=== PATIENT | male | born 1985 | race Caucasian/White ===

== ENCOUNTER 2017-12-16 11:22 | Emergency (ER) | payer SELFPAY ==
[2017-12-16 11:27] VITALS: BP 135/84; PULSE 62; TEMP 98.3; BMI 29.2
--- NOTE | 2017-12-16 12:04 | PDOC ---
History of Present Illness - General Chief Complaint: Rash Stated Complaint: RASH Time Seen by Provider: 12/16/17 11:46 History Source: Patient Exam Limitations: Clinical Condition - History of Present Illness Initial Comments: 12/16/17 12:11 Patient with no significant past medical history present with complain of diffuse body rash all over the body since yesterday. Patient was seen in this ED 2 days ago and was given Toradol injection for pain and not sure that caused the rash. Denies any other symptoms. Patient reported the rash is not itchy. Timing/Duration: 24 hours Past History - Past Medical History Allergies/Adverse Reactions: Allergies Allergy/AdvReac Type Severity Reaction Status Date / Time No Known Allergies Allergy Verified 12/16/17 11:23 Home Medications: Ambulatory Orders Hydrocortisone 2.5% Lotion [Hytone 2.5% Lotion -] 1 applic TP BID #1 bottle Hydroxyzine HCl 25 mg PO TID PRN #20 tablet 12/16/17 Prednisone [Deltasone] 20 mg PO BID 5 Days #10 tablet 12/16/17 COPD: No DVT: No - Suicide/Smoking/Psychosocial Hx Smoking History: Never smoked Information on smoking cessation initiated: No Hx Alcohol Use: No Drug/Substance Use Hx: No Substance Use Type: None Review of Systems - Review of Systems Able to Perform ROS?: Yes Is the patient limited Serbian proficient: No Constitutional: No: Symptoms Reported, See HPI, Chills, Diaphoresis, Fever, Loss of Appetite, Malaise, Night Sweats, Weakness, Weight Stable, Unintentional Wgt. Loss, Unexplained wgt Loss, Other HEENTM: No: Eye Pain, Blurred Vision, Tearing, Recent change in vision, Double Vision, Cataracts, Ear Pain, Ocular Prothesis, Ear Discharge, Nose Pain, Nose Congestion, Tinnitus, Nose Bleeding, Hearing Loss, Throat Pain, Throat Swelling , Mouth Pain, Dental Problems, Difficulty Swallowing, Mouth Swelling, Other Respiratory: No: Cough, Orthopnea, Shortness of Breath, SOB with Exertion, SOB at Rest, Stridor, Wheezing, Productive cough, Hemoptysis, Other Cardiac (ROS): No: Chest Pain, Edema, Irregular Heart Rate, Lightheadedness, Palpitations, Syncope, Chest Tightness, Other ABD/GI: No: Abdominal Distended, Abd. Pain w/ defecation, Blood Streaked Bowels , Constipated, Diarrhea, Difficulty Swallowing, Nausea, Poor Appetite, Poor Fluid Intake, Rectal Bleeding, Vomiting, Indigestion, Abdominal cramping, Tarry Stools, Other Musculoskeletal: No: Back Pain, Gout, Joint Pain, Joint Swelling, Muscle Pain, Muscle Weakness, Neck Pain, Joint Stiffness, Other Integumentary: Yes: See HPI, Rash (all over the body). No: Erythema, Pruritus All Other Systems: Reviewed and Negative *Physical Exam - Vital Signs Last Vital Signs Temp Pulse Resp BP Pulse Ox 98.3 F 62 18 135/84 100 12/16/17 11:24 12/16/17 11:24 12/16/17 11:24 12/16/17 11:24 12/16/17 11:24 - Physical Exam Comments: 12/16/17 12:14 GENERAL: Well developed, well nourished. Awake and alert. No acute distress. HEENT: Normocephalic, atraumatic. PERRLA, EOMI. No conjunctival pallor. Sclera are non- icteric. Moist mucous membranes. Oropharynx is clear. NECK: Supple. Full ROM. No JVD. Carotid pulses 2+ and symmetric, without bruits. No thyromegaly. No lymphadenopathy. CARDIOVASCULAR: Regular rate and rhythm. No murmurs, rubs, or gallops. Distal pulses are 2+ and symmetric. PULMONARY: No evidence of respiratory distress. Lungs clear to auscultation bilaterally. No wheezing, rales or rhonchi. ABDOMINAL: Soft. Non-tender. Non-distended. No rebound or guarding. No organomegaly. Normoactive bowel sounds. MUSCULOSKELETAL Normal range of motion at all joints. No bony deformities or tenderness. No CVA tenderness. EXTREMITIES: No cyanosis. No clubbing. No edema. No calf tenderness. SKIN: Diffuse vesicular rash all over the body without discolorations. Warm and dry. NEUROLOGICAL: Alert, awake, appropriate. Cranial nerves 2-12 intact. No deficits to light touch and temperature in face, upper extremities and lower extremities. No motor deficits in the in face, upper extremities and lower extremities. Normoreflexic in the upper and lower extremities. Normal speech. Toes are down- going bilaterally. Gait is normal without ataxia. PSYCHIATRIC: Cooperative. Good eye contact. Appropriate mood and affect. General Appearance: Yes: Nourished, Appropriately Dressed. No: Apparent Distress Medical Decision Making - Medical Decision Making 12/16/17 12:15 Patient with no significant past medical history present with complain of diffuse rashes per day without itching and with no other complaints. Symptoms likely ALLERGIC dermatitis versus heat rash. Patient stable for home discharge on outpatient treatment for dermatitis with dermatology follow-up *DC/Admit/Observation/Transfer Diagnosis at time of Disposition: Dermatitis - Discharge Dispostion Disposition: HOME Condition at time of disposition: Stable Decision to Admit order: No - Prescriptions Prescriptions: Hydrocortisone 2.5% Lotion [Hytone 2.5% Lotion -] 1 applic TP BID #1 bottle Hydroxyzine HCl 25 mg PO TID PRN #20 tablet PRN Reason: rash Prednisone [Deltasone] 20 mg PO BID 5 Days #10 tablet - Referrals Referrals: Philip Calhoun MD [Non Staff, Medical] - - Patient Instructions Printed Discharge Instructions: DI for Rash Additional Instructions: Take medications as prescribed. Follow-up with preferred dermatology if no improvement in 4 days - Post Discharge Activity
== END 2017-12-16 12:07 | disposition home or self-care (01) ==
LOC: JERFT 11:22
DX: L30.8 Other specified dermatitis (principal)
CPT/HCPCS: 99281-25

== ENCOUNTER 2018-03-03 18:34 | Emergency (ER) | payer OTHER ==
--- NOTE | 2018-03-03 18:47 | PDOC ---
Rapid Medical Evaluation Chief Complaint: Pain, Acute Time Seen by Provider: 03/03/18 18:40 Medical Evaluation: Allergies Allergy/AdvReac Type Severity Reaction Status Date / Time No Known Allergies Allergy Verified 12/16/17 11:23 03/03/18 18:41I have performed a brief in-person evaluation of this patient. The patient presents with a chief complaint of: states missed step and c/o knee pain Pertinent physical exam findings: mild swelling to patella I have ordered the following: xray left knee The patient will proceed to the ED for further evaluation. 03/03/18 18:47 03/03/18 18:48 Discharge Disposition - Diagnosis Left knee pain - Referrals - Patient Instructions - Post Discharge Activity
[2018-03-03 18:48] VITALS: BP 141/84; PULSE 75; TEMP 98.6; BMI 31.1
[2018-03-03] MEDS ORDERED: IBUPROFEN 400 MG TABLET (FP) PO ONE ×2 (20:23→20:25)
--- NOTE | 2018-03-03 20:29 | PDOC ---
History of Present Illness - General Chief Complaint: Pain, Acute Stated Complaint: LT LEG PAIN Time Seen by Provider: 03/03/18 18:40 History Source: Patient Exam Limitations: Clinical Condition - History of Present Illness Initial Comments: 03/03/18 20:24 Patient with no significant past medical history present with complaint of left knee pain status post twisting the knee while walking 3 days ago. Patient reported increased pain to left knee with ambulation. Patient denies fall. Patient denies any other symptoms Timing/Duration: other (3 days) Past History - Past Medical History Allergies/Adverse Reactions: Allergies Allergy/AdvReac Type Severity Reaction Status Date / Time No Known Allergies Allergy Verified 03/03/18 18:45 Home Medications: Ambulatory Orders Ibuprofen 800 mg PO Q8H PRN #20 tablet 03/03/18 Leg Brace [Knee Brace] 1 each MC DAILY #1 each 03/03/18 COPD: No DVT: No - Suicide/Smoking/Psychosocial Hx Smoking History: Never smoked Information on smoking cessation initiated: No Hx Alcohol Use: No Drug/Substance Use Hx: No Substance Use Type: None Review of Systems - Review of Systems Able to Perform ROS?: Yes Is the patient limited Malay proficient: No Constitutional: No: Weakness HEENTM: No: Symptoms Reported Respiratory: No: Symptoms reported Cardiac (ROS): No: Symptoms Reported ABD/GI: No: Symptoms Reported Musculoskeletal: Yes: See HPI, Joint Pain (left knee), Muscle Pain (left knee). No: Muscle Weakness, Joint Stiffness All Other Systems: Reviewed and Negative *Physical Exam - Vital Signs Last Vital Signs Temp Pulse Resp BP Pulse Ox 98.6 F 75 19 141/84 99 03/03/18 18:42 03/03/18 18:42 03/03/18 18:42 03/03/18 18:42 03/03/18 18:42 - Physical Exam Comments: 03/03/18 20:25 GENERAL: Well developed, well nourished. Awake and alert. No acute distress. CARDIOVASCULAR: Regular rate and rhythm. No murmurs, rubs, or gallops. PULMONARY: No evidence of respiratory distress. Lungs clear to auscultation bilaterally. No wheezing, rales or rhonchi. ABDOMINAL: Soft. Non-tender. Non-distended. No rebound or guarding. No organomegaly. Normoactive bowel sounds MUSCULOSKELETAL : mild tenderness over medial and lateral collateral ligament of left knee. mild swelling to patella of lef knee EXTREMITIES: No cyanosis. No clubbing. No edema. No calf tenderness. SKIN: Warm and dry. Normal capillary refill. No rashes. No jaundice. NEUROLOGICAL: Alert, awake, appropriate. No motor deficits in the lower extremities. Gait is normal without ataxia. PSYCHIATRIC: Cooperative. Good eye contact. Appropriate mood and affect. General Appearance: Yes: Nourished, Appropriately Dressed. No: Apparent Distress Medical Decision Making - Medical Decision Making 03/03/18 20:26 Patient with no syndrome past medication present with complaint of left knee pain status post twisting knee while walking 3 days ago. Exam was significant for marked tenderness to medial and lateral collateral ligament. X-ray of left knee shows no acute fracture dislocation. Symptoms likely knee sprain. Ibuprofen 800 mg by mouth given for pain. Patient was discharged home on NSAIDs and knee brace with orthopedics follow-up *DC/Admit/Observation/Transfer Diagnosis at time of Disposition: Left knee pain Qualifiers: Chronicity: acute Qualified Code(s): M25.562 - Pain in left knee Left knee sprain Qualifiers: Encounter type: initial encounter Involved ligament of knee: unspecified ligament Qualified Code(s): S83.92XA - Sprain of unspecified site of left knee, initial encounter - Discharge Dispostion Disposition: HOME Condition at time of disposition: Stable Decision to Admit order: No - Prescriptions Prescriptions: Ibuprofen 800 mg PO Q8H PRN #20 tablet PRN Reason: knee pain Leg Brace [Knee Brace] 1 each MC DAILY #1 each - Referrals Referrals: Obie Mckinney MD [Staff Physician] - - Patient Instructions Printed Discharge Instructions: DI for Knee Sprain Additional Instructions: Your x-ray was negative for fracture or dislocation. Take prescribed medication as needed for pain. use prescribed a knee brace daily until symptoms resolve. - Post Discharge Activity
== END 2018-03-03 20:39 | disposition home or self-care (01) ==
LOC: JERFT 18:34
PROC: 2W3RXYZ Immobilization of Left Lower Leg using Other Device (ICD-10-PCS; principal; 2018-03-03)
DX: S83.8X2A Sprain of other specified parts of left knee, initial encounter (principal); X50.1XXA Overexertion from prolonged static or awkward postures, initial encounter; Y93.01 Activity, walking, marching and hiking; Y92.89 Other specified places as the place of occurrence of the external cause; Y99.8 Other external cause status
CPT/HCPCS: 73562-TC-LT-FY; 99281-25

== ENCOUNTER 2018-04-20 17:53 | Emergency (ER) | payer OTHER ==
[2018-04-20 18:11] VITALS: BP 145/86; PULSE 87; TEMP 97.9; BMI 27.1
--- NOTE | 2018-04-20 18:11 | PDOC ---
Rapid Medical Evaluation Medical Evaluation: Allergies Allergy/AdvReac Type Severity Reaction Status Date / Time No Known Allergies Allergy Verified 03/03/18 18:45 I have performed a brief in-person evaluation of this patient. The patient presents with a chief complaint of: C/O R posterior ESTEVEZ after slip and fall 2 weeks ago (slipped in shower) along with slight pain on turning neck to right, also c/o intermittent blurred vision x 1 week since fall; has been taking Motrin which has been helping him Pertinent physical exam findings: In NAD, no evidence of head trauma, no cspine tenderness, neck supple I have ordered the following: Nothing (patient does not want meds currently) The patient will proceed to the ED for further evaluation. 04/20/18 18:05
--- NOTE | 2018-04-20 19:27 | PDOC ---
History of Present Illness - General Chief Complaint: Head/Neck problem Stated Complaint: Head/Neck problem FROM A FALL Time Seen by Provider: 04/20/18 18:25 History Source: Patient Exam Limitations: Clinical Condition - History of Present Illness Initial Comments: 04/20/18 19:26 Patient with no significant past medication present with complaint of 2 weeks history of intermittent headache and blurred vision status post slip and fall in the bathtub 2 weeks ago hitting the head. Patient reported headache as mild with mild pain to neck area. Patient report taking motrin for pain which helps with symptoms. Patient denies nausea or vomiting. Patient denies restricted neck movement. Patient denies blurry vision now. Patient report mild pain to temporal bone on right side 04/20/18 19:28 04/20/18 19:28 Timing/Duration: other (2 weeks) Past History - Past Medical History Allergies/Adverse Reactions: Allergies Allergy/AdvReac Type Severity Reaction Status Date / Time No Known Allergies Allergy Verified 03/03/18 18:45 Home Medications: Ambulatory Orders Ibuprofen 800 mg PO Q8H PRN #20 tablet 04/20/18 COPD: No DVT: No - Suicide/Smoking/Psychosocial Hx Smoking History: Never smoked Hx Alcohol Use: Yes (Social) Drug/Substance Use Hx: No Substance Use Type: None Review of Systems - Review of Systems Able to Perform ROS?: Yes Is the patient limited Senegalese proficient: No Constitutional: No: Weakness HEENTM: Yes: Blurred Vision (intermittent), Recent change in vision. No: Eye Pain, Tearing, Double Vision Respiratory: No: Symptoms reported Cardiac (ROS): No: Symptoms Reported ABD/GI: No: Nausea, Vomiting Neurological: Yes: Headache (mild). No: Numbness, Paresthesia, Seizure, Dizziness *Physical Exam - Vital Signs Last Vital Signs Temp Pulse Resp BP Pulse Ox 97.9 F 87 20 145/86 99 04/20/18 18:05 04/20/18 18:05 04/20/18 18:05 04/20/18 18:05 04/20/18 18:05 - Physical Exam Comments: 04/20/18 19:29 GENERAL: Well developed, well nourished. Awake and alert. No acute distress. HEENT: Normocephalic, atraumatic. PERRLA, EOMI. No conjunctival pallor. Sclera are non- icteric. Moist mucous membranes. Oropharynx is clear. NECK: Supple. Full ROM. No JVD. Carotid pulses 2+ CARDIOVASCULAR: Regular rate and rhythm. No murmurs, rubs, or gallops. PULMONARY: No evidence of respiratory distress. Lungs clear to auscultation bilaterally. No wheezing, rales or rhonchi. ABDOMINAL: Soft. Non-tender. Non-distended. No rebound or guarding. No organomegaly. Normoactive bowel sounds. MUSCULOSKELETAL : mild tenderness to right temporal area. no bruising or ecchymosis. no swelling to head. Normal range of motion at all joints. No bony deformities or tenderness. SKIN: Warm and dry. Normal capillary refill. no bruising or swelling to head. NEUROLOGICAL: Alert, awake, appropriate. Cranial nerves 2-12 intact. No deficits to light touch in face, upper extremities . No motor deficits in the in face, upper extremities and lower extremities. Normal speech. Toes are down-going bilaterally. Gait is normal without ataxia. PSYCHIATRIC: Cooperative. Good eye contact. Appropriate mood and affect. 04/20/18 19:31 General Appearance: Yes: Nourished, Appropriately Dressed. No: Apparent Distress Moderate Sedation - Procedure Monitoring Vital Signs: Procedure Monitoring Vital Signs Temperature 97.9 F 04/20/18 18:05 Pulse Rate 87 04/20/18 18:05 Respiratory Rate 20 04/20/18 18:05 Blood Pressure 145/86 04/20/18 18:05 O2 Sat by Pulse Oximetry (%) 99 04/20/18 18:05 Medical Decision Making - Medical Decision Making 04/20/18 19:33 Patient with no significant past medication present with complaint of over week history of intermittent headache and blurry vision status post slip and fall 2 weeks ago hitting the head. Clinical exam unremarkable except mild temporal bone tenderness on exam. Normal neuro exam. Head atraumatic with no ecchymosis or swelling to head. Head CT without contrast ordered to rule out any intracranial bleeding. 04/20/18 19:[address] shows no intracranial bleeding no pathology. Symptoms likely head contusion. Patient is stable for discharge with Motrin as needed for pain and neurology follow-up. *DC/Admit/Observation/Transfer Diagnosis at time of Disposition: Cervicalgia Head contusion Qualifiers: Encounter type: initial encounter Contusion of head detail: scalp Qualified Code(s): S00.03XA - Contusion of scalp, initial encounter - Discharge Dispostion Disposition: HOME Condition at time of disposition: Stable Decision to Admit order: No - Prescriptions Prescriptions: Ibuprofen 800 mg PO Q8H PRN #20 tablet PRN Reason: pain - Referrals Referrals: Mendoza Keating MD [Staff Physician] - - Patient Instructions Printed Discharge Instructions: DI for Concussion, Closed Head Injury Additional Instructions: Your CAT scan was normal. Take prescribed Motrin as needed for headache. Follow- up referred neurology as soon as possible for follow-up. - Post Discharge Activity
== END 2018-04-20 19:50 | disposition home or self-care (01) ==
LOC: JER 17:53 → JERFT 17:53
DX: S00.03XA Contusion of scalp, initial encounter (principal); W18.2XXA Fall in (into) shower or empty bathtub, initial encounter; Y93.E1 Activity, personal bathing and showering; Y92.031 Bathroom in apartment as the place of occurrence of the external cause; Y99.8 Other external cause status
CPT/HCPCS: 70450-TC; 99281-25

== ENCOUNTER 2018-05-13 19:49 | Emergency (ER) | payer OTHER ==
[2018-05-13 19:52] VITALS: BP 146/83; PULSE 73; TEMP 98; BMI 28.8
--- NOTE | 2018-05-13 21:14 | PDOC ---
History of Present Illness - General Chief Complaint: Pain Stated Complaint: STOMACH PAIN - History of Present Illness Initial Comments: The patient is a 32M w/ no reported PMH who presents for evaluation of 2 weeks of intermittent L flank pain that radiates towards his suprapubic region. The pain is intermittent, cramping, and moderately alleviated by Ibuprofen. Endorses associated dysuria. Denies hematuria. He reports having this pain once before approximately 1y ago, it lasted for a week at that time, but then spontaneously resolved. He denies history of kidney stones. Denies fevers/chills, ESTEVEZ, vision change, chest pain, SOB, N/V/C/D. 05/13/18 21:08 Past History - Past Medical History Allergies/Adverse Reactions: Allergies Allergy/AdvReac Type Severity Reaction Status Date / Time No Known Allergies Allergy Verified 05/13/18 19:52 Home Medications: Ambulatory Orders Ibuprofen 800 mg PO Q8H PRN #20 tablet 04/20/18 COPD: No DVT: No - Suicide/Smoking/Psychosocial Hx Smoking History: Never smoked Hx Alcohol Use: Yes (Social) Drug/Substance Use Hx: No Substance Use Type: None Review of Systems - Review of Systems Able to Perform ROS?: Yes Comments:: GENERAL/CONSTITUTIONAL: No fever or chills. No weakness HEAD, EYES, EARS, NOSE AND THROAT: No change in vision. No ear pain or discharge. No sore throat CARDIOVASCULAR: No chest pain or shortness of breath RESPIRATORY: Denies cough, hemoptysis GASTROINTESTINAL: No nausea, vomiting, diarrhea or constipation GENITOURINARY: per HPI MUSCULOSKELETAL: No joint or muscle swelling or pain. No neck or back pain SKIN: No rash NEUROLOGIC: No headache, vertigo, loss of consciousness, or change in strength/ sensation ENDOCRINE: No increased thirst. No abnormal weight change HEMATOLOGIC/LYMPHATIC: No anemia, easy bleeding, or history of blood clots ALLERGIC/IMMUNOLOGIC: No hives or skin allergy 05/13/18 21:11 Is the patient limited Yakut proficient: No *Physical Exam - Vital Signs Last Vital Signs Temp Pulse Resp BP Pulse Ox 98.0 F 73 18 146/83 98 05/13/18 19:50 05/13/18 19:50 05/13/18 19:50 05/13/18 19:50 05/13/18 19:50 - Physical Exam Comments: GENERAL: Awake, alert, and fully oriented, in no acute distress HEAD: No signs of trauma, normocephalic, atraumatic EYES: PERRLA, EOMI, sclera anicteric, conjunctiva clear ENT: Hearing grossly normal, nares patent, oropharynx clear without exudates. Moist mucosa LUNGS: No distress, speaks full sentences, clear to auscultation bilaterally HEART: Regular rate and rhythm, normal S1 and S2, no murmurs appreciated, peripheral pulses normal and equal bilaterally ABDOMEN: Soft, non-distended, L flank/suprapubic TTP w/o rebound or guarding, normoactive bowel sounds. EXTREMITIES : Normal inspection, Normal range of motion, no edema. No clubbing or cyanosis NEUROLOGICAL: Cranial nerves II through XII grossly intact. Normal speech, no focal sensorimotor deficits SKIN: Warm, Dry 05/13/18 21:14 Moderate Sedation - Procedure Monitoring Vital Signs: Procedure Monitoring Vital Signs Temperature 98.0 F 05/13/18 19:50 Pulse Rate 73 05/13/18 19:50 Respiratory Rate 18 05/13/18 19:50 Blood Pressure 146/83 05/13/18 19:50 O2 Sat by Pulse Oximetry (%) 98 05/13/18 19:50 ED Treatment Course - LABORATORY CBC & Chemistry Diagram: 05/13/18 21:19 05/13/18 21:19 Medical Decision Making - Medical Decision Making The patient is a 32M who presents for evaluation of 2 weeks of intermittent L flank pain associated w/ dysuria concerning for nephrolithiasis v UTI/ Pyelonephritis ED Course UA, UCx, CMP, CBC CT spiral to evaluate for nephrolithiasis 05/13/18 21:15 UA w/o evidence of UTI No leukocytosis No anemia Lytes wnl No HOLLIE LFTs wnl 05/13/18 21:57 CT w/o evidence of nephrolithiasis -Mesenteric lymphadinitis Pain improved s/p Toradol Plan for D/C w/ PCP f/u Paitent in agreement and verbalized understanding Discharge instructions and return precautions given Dispo: home 05/14/18 05:03 *DC/Admit/Observation/Transfer Diagnosis at time of Disposition: Left flank pain, Mesenteric adenitis - Discharge Dispostion Disposition: HOME Condition at time of disposition: Stable Decision to Admit order: No - Referrals - Patient Instructions Printed Discharge Instructions: DI for Mesenteric Adenitis-Adult Additional Instructions: You were seen in the Emergency Department for abdominal pain. You were found to have mesenteric adenitis. No kidney stone was seen. Review the handout provided at discharge. Follow up with your primary care provider. Return to the Emergency Department if you develop fevers/chills, vomiting, diarrhea, worsening symptoms, or new/concerning symptoms. Usted fue atendido en el servicio de urgencias por dolor abdominal. Se encontr que tenas adenitis mesentrica. No se lydia ningn clculo renal. Revise el folleto provisto al momento del tatyana. Neida un seguimiento con vann proveedor de atencin primaria. Regrese al Departamento de Emergencias si desarrolla fiebre / escalofros, vmitos, diarrea, empeoramiento de los sntomas o sntomas nuevos o relacionados con ellos. Print Language: JAPANESE - Post Discharge Activity Forms/Work/School Notes: Back to Work
[2018-05-13] MEDS ORDERED: KETOROLAC TROMETHAMINE 30 MG/1 ML VIAL IM ONE (21:17)
[2018-05-13] MEDS ORDERED: KETOROLAC TROMETHAMINE 30 MG/1 ML VIAL ONE (21:25)
[2018-05-13 21:28] LABS: EOS % 2.3 % (0-4.5); HEMATOCRIT 42.1 % (35.4-49); HEMOGLOBIN 14.7 GM/dL (11.7-16.9); LYMPH % 38.8 % (8-40); MCHC 34.8 g/dl (32.0-35.9); MEAN CELL VOLUME 83.5 fl (80-96); MEAN PLT VOLUME 8.9 fl (7.5-11.1); MONO % 7.7 % (3.8-10.2); NEUT % 50.2 % (42.8-82.8); PLATELET COUNT 245 K/MM3 (134-434); RBC 5.05 M/mm3 (4.00-5.60); RDW 12.8 % (11.9-15.9)
--- NOTE | 2018-05-13 21:37 | PDOC ---
Attending Attestation - HPI HPI: 05/13/18 22:00 The patient is a 32 year old male, with no significant PMH, who presents to the emergency department with 2 weeks of intermittent cramping left flank pain. The patient states the left flank pain radiates to the suprapubic region. The patient states he has experienced a similar pain in the past which lasted for 1 week before resolving on its own. The patient states he has been taking Ibuprofen for the left flank pain with mild relief. The patient also endorses dysuria secondary to the left flank pain. Denies any recent fevers or chills. The patient denies chest pain, shortness of breath, headache and dizziness. Denies, nausea, vomit, diarrhea and constipation. Denies frequency, urgency and hematuria. Allergies: NKA Surgical History: None Social History: Occasional EtOH use. No tobacco use or recreational drug use. Documentation prepared by Master Pate, acting as medical billing service for Michelle Acosta MD. - Physicial Exam PE: 05/13/18 22:00 GENERAL: Afebrile. Awake, alert, and fully oriented, in no acute distress HEAD: No signs of trauma EYES: PERRLA, EOMI, sclera anicteric, conjunctiva clear ENT: Auricles normal inspection, hearing grossly normal, nares patent, oropharynx clear without exudates. Moist mucosa NECK: Normal ROM, supple, no lymphadenopathy, JVD, or masses LUNGS: Breath sounds equal, clear to auscultation bilaterally. No wheezes, and no crackles HEART: Regular rate and rhythm, normal S1 and S2, no murmurs, rubs or gallops ABDOMEN: (+) Pain with palpation of left flank. (+) Left anterior abdominal pain. No rebound or guarding. Soft, normoactive bowel sounds. No masses GENITAL: Testicles are normal, non tender. No rashes. No inguinal hernia. No penile discharge. EXTREMITIES: Normal range of motion, no edema. No clubbing or cyanosis. No cords, erythema, or tenderness NEUROLOGICAL: Cranial nerves II through XII grossly intact. Normal speech, normal gait SKIN: Warm, Dry, normal turgor, no rashes or lesions noted. <Master Pate - Last Filed: 05/13/18 22:00> - Resident Resident Name: Jose Elias Gonzalez - ED Attending Attestation I have performed the following: I have examined & evaluated the patient, The case was reviewed & discussed with the resident, I agree w/resident's findings & plan - Medical Decision Making 05/13/18 22:48 All labs are normal 05/14/18 00:18 Patient Name: LYNDON DAHL THIS IS A PRELIMINARY REPORT FROM [facility] DATE OF SERVICE: 2018-05-13 23:27:49 IMAGES: 488 EXAM: CT abdomen and pelvis without contrast HISTORY: Concern for stone COMPARISON: None. FINDINGS: Abdomen Liver: Normal Spleen: Normal Pancreas: Normal Gallbladder: Normal Stomach: Normal Small bowel: Normal Large bowel: Normal Appendix: Normal Adrenals:Normal Kidneys: Normal Vascular: Normal Lymphatic: There are moderately prominent central mesenteric lymph nodes. The largest measures 1.5 x 1.6 cm. 2 nodular densities within the mesenteric fat demonstrates calcification likely reflecting calcified lymph nodes Peritoneal: No free peritoneal air or fluid Pelvis: Prostate: normal Rectum: Normal Bladder: Normal The inferior thorax: Normal General: Skeletal: Normal Abdominal wall: Normal IMPRESSION: Prominent mesenteric lymph nodes with partial calcification suggesting mesenteric adenitis and previous granulomatous disease. 05/14/18 00:25 Pt has mesenteric lymphadenitis; OTC pain control; pt has no need for further studies at this time.. He can follow with his PMD. <Michelle Acosta - Last Filed: 05/14/18 00:25>
[2018-05-13 21:54] LABS: ALBUMIN 4.4 g/dl (3.4-5.0); ALK PHOS 80 U/L (45-117); ANION GAP 8 MMOL/L (8-16); BILIRUBIN,TOTAL 0.5 mg/dL (0.2-1); BLOOD UREA NITROGEN 10 mg/dL (7-18); CALCIUM 8.8 mg/dL (8.5-10.1); CHLORIDE 108 mmol/L (98-107); CO2 25 mmol/L (21-32); CREATININE 0.7 mg/dL (0.55-1.3); GLUCOSE,RANDOM 95 mg/dL (74-106); POTASSIUM 3.6 mmol/L (3.5-5.1); SGOT/AST 18 U/L (15-37); SGPT/ALT 39 U/L (13-61); SODIUM 142 mmol/L (136-145); TOT PROT 7.8 g/dl (6.4-8.2)
[2018-05-13 22:01] LABS: URINE APPEARANCE CLEAR; URINE BILIRUBIN NEGATIVE (<2.0 mg/dL); URINE COLOR YELLOW; URINE GLUCOSE (UA) NEGATIVE (NEGATIVE); URINE KETONE NEGATIVE (NEGATIVE); URINE LEUK ESTERASE NEGATIVE (NEGATIVE); URINE NITRITE NEGATIVE (NEGATIVE); URINE PROTEIN NEGATIVE (NEGATIVE)
== END 2018-05-14 01:00 | disposition home or self-care (01) ==
LOC: JER 19:49
PROC: 3E0233Z Introduction of Anti-inflammatory into Muscle, Percutaneous Approach (ICD-10-PCS; principal; 2018-05-13)
DX: I88.0 Nonspecific mesenteric lymphadenitis (principal)
CPT/HCPCS: 36415; 74176; 80053; 81003; 85025; 87086; 96372; 99283-25

== ENCOUNTER 2018-08-25 18:54 | Emergency (ER) | payer OTHER ==
[2018-08-25 19:02] VITALS: BP 120/83; PULSE 89; TEMP 97.8; BMI 27.1
--- NOTE | 2018-08-25 19:34 | PDOC ---
History of Present Illness - General Chief Complaint: Cold Symptoms Stated Complaint: SORE THROAT HEADACHE Time Seen by Provider: 08/25/18 19:34 History Source: Patient - History of Present Illness Initial Comments: 08/25/18 20:17 32-year-old male complaining of right-sided headache, nasal congestion, right ear pain, throat pain for the last 2 days. Patient reports he has been taking Tylenol and ibuprofen. Today reports that he used ear drops for pain. Patient reports that he had a history of head trauma in March since then he's been getting on and off headaches/dizziness For several months. Patient has been seen by primary care doctor for this and was told he has vertigo. Past History - Past Medical History Allergies/Adverse Reactions: Allergies Allergy/AdvReac Type Severity Reaction Status Date / Time No Known Allergies Allergy Verified 05/13/18 19:52 Home Medications: Ambulatory Orders NK [No Known Home Medication] 08/25/18 COPD: No DVT: No - Immunization History Immunization Up to Date: No - Suicide/Smoking/Psychosocial Hx Smoking History: Never smoked Have you smoked in the past 12 months: No Information on smoking cessation initiated: No Hx Alcohol Use: No Drug/Substance Use Hx: No Substance Use Type: None Review of Systems - Review of Systems Is the patient limited Romansh proficient: No Constitutional: No: Symptoms Reported, See HPI, Chills, Diaphoresis, Fever, Loss of Appetite, Malaise, Night Sweats, Weakness, Weight Stable, Unintentional Wgt. Loss, Unexplained wgt Loss, Other HEENTM: Yes: Ear Pain, Nose Congestion, Throat Pain. No: Symptoms Reported, See HPI, Eye Pain, Blurred Vision, Tearing, Recent change in vision, Double Vision, Cataracts, Ocular Prothesis, Ear Discharge, Nose Pain, Tinnitus, Nose Bleeding, Hearing Loss, Throat Swelling, Mouth Pain, Dental Problems, Difficulty Swallowing, Mouth Swelling, Other Respiratory: Yes: Cough. No: Symptoms reported, See HPI, Orthopnea, Shortness of Breath, SOB with Exertion, SOB at Rest, Stridor, Wheezing, Productive cough, Hemoptysis, Other Cardiac (ROS): No: Symptoms Reported, See HPI, Chest Pain, Edema, Irregular Heart Rate, Lightheadedness, Palpitations, Syncope, Chest Tightness, Other *Physical Exam - Vital Signs Last Vital Signs Temp Pulse Resp BP Pulse Ox 97.8 F 89 18 120/83 100 08/25/18 19:00 08/25/18 19:00 08/25/18 19:00 08/25/18 19:00 08/25/18 19:00 - Physical Exam General Appearance: Yes: Appropriately Dressed HEENT: positive: Normal ENT Inspection, Pharyngeal Erythema, Other (no mastoid tenderness, TM clear b/l) Neck: negative: Lymphadenopathy (R), Lymphadenopathy (L) Respiratory/Chest: positive: Lungs Clear, Normal Breath Sounds Integumentary: positive: Normal Color, Dry, Warm Neurologic: positive: Fully Oriented, Alert Progress Note - Progress Note Progress Note: A: viral uri; pharyngitis P: rapid strep *DC/Admit/Observation/Transfer Diagnosis at time of Disposition: Viral URI - Discharge Dispostion Disposition: HOME Condition at time of disposition: Stable - Referrals - Patient Instructions Printed Discharge Instructions: DI for Common Cold Additional Instructions: Drink plenty of fluids. Give Tylenol every 4 hours as needed for fever Give ibuprofen then every 6 hours as needed for fever Follow-up with your doctor as soon as possible. Additional Instructions: * Please call your personal physician to report your Emergency Department visit and to report your progress, if any. * If there is no improvement in symptoms in 2 days call your physician. * Return to the Emergency Department for any worsening symptoms. - Post Discharge Activity Forms/Work/School Notes: Back to Work
[2018-08-25] MEDS ORDERED: ACETAMINOPHEN 325 MG TABLET (FP) PO ONE (19:52)
[2018-08-25] MEDS ORDERED: ACETAMINOPHEN 325 MG TABLET (FP) ONE (20:13)
== END 2018-08-25 21:04 | disposition home or self-care (01) ==
LOC: JERFT 18:54
DX: J06.9 Acute upper respiratory infection, unspecified (principal); B97.89 Other viral agents as the cause of diseases classified elsewhere
CPT/HCPCS: 87070; 87880; 99281-25

== ENCOUNTER 2018-10-26 17:31 | Emergency (ER) | payer OTHER ==
[2018-10-26 17:41] VITALS: BP 118/80; PULSE 71; TEMP 97.9; BMI 27.1
[2018-10-26] MEDS ORDERED: MAG HYDROX/AL HYDROX/SIMETH 30 ML UNIT-DOSE CUP PO ONE (18:09)
[2018-10-26] MEDS ORDERED: MAG HYDROX/AL HYDROX/SIMETH 30 ML UNIT-DOSE CUP ONE (18:26)
[2018-10-26 18:30] LABS: BASO % 0.8 % (0-2.0); EOS % 2.5 % (0-4.5); HEMATOCRIT 44.7 % (35.4-49); HEMOGLOBIN 15.1 GM/dL (11.7-16.9); LYMPH % 35.9 % (8-40); MCH 28.6 pg (25.7-33.7); MCHC 33.8 g/dl (32.0-35.9); MEAN CELL VOLUME 84.7 fl (80-96); MEAN PLT VOLUME 9.3 fl (7.5-11.1); MONO % 8.4 % (3.8-10.2); NEUT % 52.4 % (42.8-82.8); PLATELET COUNT 251 K/MM3 (134-434); RBC 5.28 M/mm3 (4.00-5.60); RDW 13.5 % (11.9-15.9); WHITE BLOOD COUNT 9.2 K/mm3 (4.0-10.0)
--- NOTE | 2018-10-26 18:47 | PDOC ---
History of Present Illness - General Chief Complaint: Pain Stated Complaint: ABD PAIN Time Seen by Provider: 10/26/18 18:05 History Source: Patient Exam Limitations: Clinical Condition - History of Present Illness Initial Comments: 10/26/18 18:43 Patient with no significant past medical history present with complaint of one- week history of periumbilical and suprapubic discomfort which radiates to left side of her abdomen. Patient reported having urinary frequency and burning with urination 3 days prior to this started abdominal pain. Denies nausea, vomiting, diarrhea or constipation. Reported last bowel movement this morning which was soft and normal. Denies back pains. Denies fever, chills or any other symptoms Timing/Duration: 1 week Past History - Past Medical History Allergies/Adverse Reactions: Allergies Allergy/AdvReac Type Severity Reaction Status Date / Time No Known Allergies Allergy Verified 05/13/18 19:52 Home Medications: Ambulatory Orders Docusate Sodium [Colace] 100 mg PO BID #30 capsule 10/26/18 Mag Hydrox/Aluminum Hyd/Simeth [Maalox Advanced Suspension] 30 ml PO Q8H PRN # 200 ml 10/26/18 Polyethylene Glycol 3350 [Miralax (For Daily Use) -] 17 gm PO DAILY #1 bottle COPD: No DVT: No - Immunization History Immunization Up to Date: No - Suicide/Smoking/Psychosocial Hx Smoking History: Never smoked Have you smoked in the past 12 months: No Information on smoking cessation initiated: No Hx Alcohol Use: No Drug/Substance Use Hx: No Substance Use Type: None Review of Systems - Review of Systems Able to Perform ROS?: Yes Is the patient limited Honduran proficient: No Constitutional: No: Chills, Fever, Malaise HEENTM: No: Symptoms Reported Respiratory: No: Symptoms reported Cardiac (ROS): No: Symptoms Reported, See HPI, Chest Pain, Edema, Irregular Heart Rate, Lightheadedness, Palpitations, Syncope, Chest Tightness, Other ABD/GI: Yes: Symptoms Reported, See HPI, Abdominal cramping (leobardo-umbilical and suprapubic tenderness). No: Abdominal Distended, Constipated, Diarrhea, Difficulty Swallowing, Nausea, Poor Appetite, Poor Fluid Intake, Rectal Bleeding , Vomiting, Indigestion, Tarry Stools Musculoskeletal: No: Symptoms Reported Neurological: No: Symptoms reported, Numbness, Paresthesia, Weakness, Dizziness All Other Systems: Reviewed and Negative *Physical Exam - Vital Signs Last Vital Signs Temp Pulse Resp BP Pulse Ox 97.9 F 71 18 118/80 100 10/26/18 17:35 10/26/18 17:35 10/26/18 17:35 10/26/18 17:35 10/26/18 17:35 - Physical Exam Comments: 10/26/18 18:42 GENERAL: Well developed, well nourished. Awake and alert. No acute distress. HEENT: Normocephalic, atraumatic. PERRLA, EOMI. No conjunctival pallor. Sclera are non-icteric. Moist mucous membranes. Oropharynx is clear. NECK: Supple. Full ROM. CARDIOVASCULAR: Regular rate and rhythm. No murmurs, rubs, or gallops. Distal pulses are 2+ and symmetric. PULMONARY: No evidence of respiratory distress. Lungs clear to auscultation bilaterally. No wheezing, rales or rhonchi. ABDOMINAL: Soft. Mild periumbilical and suprapubic tenderness. Non-distended. No rebound or guarding. No organomegaly. Normoactive bowel sounds. MUSCULOSKELETAL Normal range of motion at all joints. SKIN: Warm and dry. Normal capillary refill. NEUROLOGICAL: Alert, awake, appropriate. Gait is normal without ataxia. PSYCHIATRIC: Cooperative. Good eye contact. Appropriate mood General Appearance: Yes: Nourished, Appropriately Dressed. No: Apparent Distress ED Treatment Course - LABORATORY CBC & Chemistry Diagram: 10/26/18 18:17 10/26/18 18:17 - ADDITIONAL ORDERS Additional order review: 10/26/18 18:17 RBC 5.28 MCV 84.7 MCHC 33.8 RDW 13.5 MPV 9.3 Neutrophils % 52.4 Lymphocytes % 35.9 Monocytes % 8.4 Eosinophils % 2.5 Basophils % 0.8 - Medications Given in the ED: ED Medications Discontinued Medications Generic Name Dose Route Start Last Admin Trade Name Freq PRN Reason Stop Dose Admin Al Hydroxide/Mg Hydroxide 30 ml 10/26/18 18:09 10/26/18 18:27 Mylanta Oral Suspension - PO 10/26/18 18:10 30 ml ONCE ONE Administration Medical Decision Making - Medical Decision Making 10/26/18 18:44 Patient with no significant past medical history present with complaint of one- week history of periumbilical and suprapubic discomfort which radiates to left side of her abdomen. Patient reported having urinary frequency and burning with urination 3 days prior to this started abdominal pain. Denies nausea, vomiting, diarrhea or constipation. Reported last bowel movement this morning which was soft and normal. Denies back pains. Denies fever, chills or any other symptoms 10/26/18 18:45 Clinical exam significant for mild periumbilical suprapubic discomfort with deep palpation without guarding or rebound otherwise normal exam. Patient in no acute distress. Symptoms likely UTI versus gas pain versus less likely cholecystitis CBC, CMP and lipase lab ordered. UA and urine culture lab ordered. Treat based on lab results. 10/26/18 19:34 CBC, chemistry and urine unremarkable. Patient in no acute distress. abd x-ray ordered for evaluate for possible abdominal gas 10/26/18 19:46 abd x-ray shows diffused bowel and gas pattern. Patient stable for discharge on miralax, colace and maalox prn for symptoms with GI follow-up *DC/Admit/Observation/Transfer Diagnosis at time of Disposition: Abdominal gas pain Abdominal pain Qualifiers: Abdominal location: unspecified location Qualified Code(s): R10.9 - Unspecified abdominal pain - Discharge Dispostion Disposition: HOME Condition at time of disposition: Stable Decision to Admit order: No - Prescriptions Prescriptions: Docusate Sodium [Colace] 100 mg PO BID #30 capsule Mag Hydrox/Aluminum Hyd/Simeth [Maalox Advanced Suspension] 30 ml PO Q8H PRN # 200 ml PRN Reason: abdominal discomfort Polyethylene Glycol 3350 [Miralax (For Daily Use) -] 17 gm PO DAILY #1 bottle - Referrals Referrals: Sam Tovar MD [Staff Physician] - - Patient Instructions Printed Discharge Instructions: Intestinal Gas (Alternative Therapy) Additional Instructions: Your labs and x-rays was normal. Your abdominal x-rays shows bowel stool in colon. Take medications as prescribed. Increase fluid intake. Follow-up with referred GI doctor - Post Discharge Activity
[2018-10-26 18:57] LABS: ALBUMIN 4.2 g/dl (3.4-5.0); BILIRUBIN,TOTAL 0.4 mg/dL (0.2-1); CALCIUM 7.5 mg/dL (8.5-10.1); CREATININE 0.9 mg/dL (0.55-1.3); POTASSIUM 4.2 mmol/L (3.5-5.1); TOT PROT 8.4 g/dl (6.4-8.2)
[2018-10-26 18:58] LABS: URINE APPEARANCE CLEAR; URINE BILIRUBIN NEGATIVE (NEGATIVE); URINE COLOR YELLOW; URINE GLUCOSE (UA) NEGATIVE (NEGATIVE); URINE KETONE NEGATIVE (NEGATIVE); URINE LEUK ESTERASE NEGATIVE (NEGATIVE); URINE NITRITE NEGATIVE (NEGATIVE); URINE PROTEIN NEGATIVE (NEGATIVE); URINE UROBILINOGEN 0.2 mg/dL (0.2-1.0)
== END 2018-10-26 20:31 | disposition home or self-care (01) ==
LOC: JER 17:31
DX: R10.9 Unspecified abdominal pain (principal); R14.1 Gas pain
CPT/HCPCS: 36415; 74018-TC-FY; 80053; 81003; 83690; 85025; 87086; 99282-25

== ENCOUNTER 2018-12-05 18:52 | Emergency (ER) | payer OTHER ==
[2018-12-05] MEDS ORDERED: ACETAMINOPHEN 500 MG TABLET (FP) PO ONE (19:24)
--- NOTE | 2018-12-05 19:24 | PDOC ---
Rapid Medical Evaluation Time Seen by Provider: 12/05/18 19:20 Medical Evaluation: Allergies Allergy/AdvReac Type Severity Reaction Status Date / Time No Known Allergies Allergy Verified 05/13/18 19:52 12/05/18 19:20 HPI: CP, Fever, and ESTEVEZ PE: No gross deficits ORDERS: EKG, CXR Labs, Troponin, D Dimmer 12/05/18 19:23 Discharge Disposition - Diagnosis Chest pain - Referrals - Patient Instructions - Post Discharge Activity
[2018-12-05 19:54] VITALS: BMI 32.3
--- NOTE | 2018-12-05 21:26 | PDOC ---
History of Present Illness - General Chief Complaint: Chest Pain Stated Complaint: CHEST/BACK PAIN/FEVER Time Seen by Provider: 12/05/18 19:20 - History of Present Illness Initial Comments: 12/06/18 00:06 33m with no pmh presents with 2 days of chest pain, fever and muscle aches since yesterday. Admits to some cough. some sore throat. Denies sick contacts. Past History - Past Medical History Allergies/Adverse Reactions: Allergies Allergy/AdvReac Type Severity Reaction Status Date / Time No Known Allergies Allergy Verified 12/06/18 03:17 Home Medications: Ambulatory Orders levoFLOXacin [Levaquin] 750 mg PO DAILY #4 tab 12/06/18 COPD: No DVT: No - Immunization History Immunization Up to Date: No - Suicide/Smoking/Psychosocial Hx Smoking History: Never smoked Have you smoked in the past 12 months: No Hx Alcohol Use: No Drug/Substance Use Hx: No Substance Use Type: None Review of Systems - Review of Systems Able to Perform ROS?: Yes Is the patient limited Sinhala proficient: No Constitutional: Yes: See HPI HEENTM: Yes: See HPI Respiratory: Yes: See HPI Cardiac (ROS): Yes: See HPI ABD/GI: No: Symptoms Reported Integumentary: No: Symptoms Reported Neurological: No: Symptoms reported All Other Systems: Reviewed and Negative *Physical Exam - Vital Signs Last Vital Signs Temp Pulse Resp BP Pulse Ox 98.3 F 91 H 18 107/82 98 12/06/18 00:11 12/06/18 00:11 12/06/18 00:11 12/06/18 00:11 12/06/18 00:11 - Physical Exam General Appearance: Yes: Nourished, Appropriately Dressed. No: Apparent Distress HEENT: positive: EOMI, GIN, Normal ENT Inspection, Tonsillar Exudate, Tonsillar Erythema Respiratory/Chest: positive: Lungs Clear, Normal Breath Sounds. negative: Chest Tender, Respiratory Distress Cardiovascular: positive: Regular Rhythm, S1, S2, Tachycardia. negative: Regular Rate Gastrointestinal/Abdominal: positive: Normal Bowel Sounds, Flat, Soft. negative : Tender Musculoskeletal: positive: Normal Inspection. negative: CVA Tenderness Extremity: positive: Normal Capillary Refill, Normal Inspection, Normal Range of Motion Integumentary: positive: Normal Color, Dry, Warm Neurologic: positive: Fully Oriented, Alert, Normal Mood/Affect, Normal Response , Motor Strength 08/28 ED Treatment Course - LABORATORY CBC & Chemistry Diagram: 12/05/18 21:10 12/05/18 21:10 - ADDITIONAL ORDERS Additional order review: Laboratory Results 12/05/18 12/05/18 21:10 21:10 D-Dimer 414 Sodium 136 Potassium 3.8 Chloride 100 Carbon Dioxide 28 Anion Gap 8 BUN 11.0 Creatinine 1.0 Est GFR (CKD-EPI)AfAm 114.11 Est GFR (CKD-EPI)NonAf 98.45 Random Glucose 97 Calcium 9.6 Total Bilirubin 0.6 AST 26 ALT 47 Alkaline Phosphatase 88 Troponin I < 0.02 Total Protein 8.5 H Albumin 4.5 12/05/18 21:10 RBC 5.15 MCV 83.7 MCHC 35.0 RDW 13.1 MPV 9.1 Neutrophils % 67.5 D Lymphocytes % 21.6 D Monocytes % 10.4 H Eosinophils % 0.1 D Basophils % 0.4 - Medications Given in the ED: ED Medications Discontinued Medications Generic Name Dose Route Start Last Admin Trade Name Ramsey PRN Reason Stop Dose Admin Acetaminophen 1,000 mg 12/05/18 19:24 12/05/18 22:01 Tylenol - PO 12/05/18 19:25 Not Given ONCE ONE Acetaminophen 1,000 mg 12/05/18 21:31 12/05/18 22:01 Ofirmev Injection - IVPB 12/05/18 21:32 1,000 mg ONCE ONE Administration Dexamethasone 10 mg 12/05/18 22:23 12/06/18 00:04 Decadron - PO 12/05/18 22:24 Not Given ONCE ONE Sodium Chloride 1,000 mls @ 1,000 mls/hr 12/05/18 21:31 12/05/18 22:00 Normal Saline - IV 12/05/18 22:30 1,000 mls/hr ASDIR STA Administration Medical Decision Making - Medical Decision Making 12/06/18 00:01 33m with fever, cough, muscle pain. Tonsillar exudates/tonsilliths on exam. Negative rapid strep. Labs wnl. Treating with tylenol, steroid and fluids Pneumonia seen on xray over right lung, Patient young and healthy enough to treat outpatient. Levaquin in the ED and sending home with total of 5 day course. Follow up with primary and return precautions communicated. *DC/Admit/Observation/Transfer Diagnosis at time of Disposition: Pneumonia - Discharge Dispostion Disposition: HOME Condition at time of disposition: Improved Decision to Admit order: No - Prescriptions Prescriptions: levoFLOXacin [Levaquin] 750 mg PO DAILY #4 tab - Referrals - Patient Instructions Printed Discharge Instructions: Pneumonia-Adult Additional Instructions: Come back to the emergency department immediately for any new, worsening or concerning symptoms such as shortness of breath, persisting fever and chest pain. - Post Discharge Activity
[2018-12-05] MEDS ORDERED: ACETAMINOPHEN 1000 MG/100 ML VIAL (NON FORMULARY) IVPB ONE (21:31)
[2018-12-05] MEDS ORDERED: SODIUM CHLORIDE 1,000 ML IV STA (21:31)
[2018-12-05 21:32] LABS: BASO % 0.4 % (0-2.0); EOS % 0.1 % (0-4.5); HEMATOCRIT 43.1 % (35.4-49); HEMOGLOBIN 15.1 GM/dL (11.7-16.9); LYMPH % 21.6 % (8-40); MCH 29.3 pg (25.7-33.7); MEAN CELL VOLUME 83.7 fl (80-96); MEAN PLT VOLUME 9.1 fl (7.5-11.1); MONO % 10.4 % (3.8-10.2); NEUT % 67.5 % (42.8-82.8); PLATELET COUNT 191 K/MM3 (134-434); RBC 5.15 M/mm3 (4.00-5.60); RDW 13.1 % (11.9-15.9); WHITE BLOOD COUNT 7.5 K/mm3 (4.0-10.0)
[2018-12-05] MEDS ORDERED: ACETAMINOPHEN INJECTION 100 ML IVPB ONE (21:41)
[2018-12-05 22:02] LABS: ALBUMIN 4.5 g/dl (3.4-5.0); ALK PHOS 88 U/L (45-117); ANION GAP 8 MMOL/L (8-16); BILIRUBIN,TOTAL 0.6 mg/dL (0.2-1); CALCIUM 9.6 mg/dL (8.5-10.1); CHLORIDE 100 mmol/L (98-107); CO2 28 mmol/L (21-32); GLUCOSE,RANDOM 97 mg/dL (74-106); POTASSIUM 3.8 mmol/L (3.5-5.1); SGOT/AST 26 U/L (15-37); SGPT/ALT 47 U/L (13-61); SODIUM 136 mmol/L (136-145); TOT PROT 8.5 g/dl (6.4-8.2)
[2018-12-05] MEDS ORDERED: DEXAMETHASONE 4 MG TABLET (FP) PO ONE (22:23)
--- NOTE | 2018-12-06 00:07 | PDOC ---
Documentation entered by Leonel Nieves SCRIBE, acting as scribe for Dalila Ruiz DO. Dalila Ruiz DO: This documentation has been prepared by the Lizbeth william Elijah, SCRIBE, under my direction and personally reviewed by me in its entirety. I confirm that the documentation accurately reflects all work , treatment, procedures, and medical decision making performed by me. Attending Attestation - Resident Resident Name: Darius Jauregui - ED Attending Attestation I have performed the following: I have examined & evaluated the patient, The case was reviewed & discussed with the resident, I agree w/resident's findings & plan - HPI HPI: 12/05/18 22:32 Patient is a 33 year old male with no reported past medical history who presents to the ED with fever, body ache and a sore throat. Allergies: NKA - Physicial Exam PE: 12/05/18 22:34 Agree with Resident's Exam. - Medical Decision Making 12/06/18 00:07 33-year-old male with fever and body aches and intermittent left-sided chest pain Rapid strep is negative Chest x-ray shows a right upper lobe infiltrate Will treat with Levaquin 750 mg 5 days Patient given specific verbal instructions to return immediately should his condition worsen in any way He is currently nontoxic and well-appearing Family is at the bedside who also was present for instructions
[2018-12-06] MEDS ORDERED: DEXAMETHASONE 4 MG TABLET (FP) PO ONE (00:15)
[2018-12-06 00:21] VITALS: BP 107/82; PULSE 91; TEMP 98.3
--- NOTE | 2018-12-06 11:26 | EKG ---
Test Reason : Blood Pressure : / mmHG Vent. Rate : 115 BPM Atrial Rate : 115 BPM P-R Int : 126 ms QRS Dur : 090 ms QT Int : 288 ms P-R-T Axes : 032 064 007 degrees QTc Int : 398 ms SINUS TACHYCARDIA POSSIBLE LEFT ATRIAL ENLARGEMENT BORDERLINE ECG NO PREVIOUS ECGS AVAILABLE Confirmed by Dave Wilkerson MD ([id number]) on 12/06/2018 11:25:41 AM Referred By: Confirmed By:Dave Wilkerson MD
== END 2018-12-06 00:22 | disposition home or self-care (01) ==
LOC: JER 18:52
PROC: 3E033NZ Introduction of Analgesics, Hypnotics, Sedatives into Peripheral Vein, Percutaneous Approach (ICD-10-PCS; principal; 2018-12-05)
PROC: 3E0337Z Introduction of Electrolytic and Water Balance Substance into Peripheral Vein, Percutaneous Approach (ICD-10-PCS; 2018-12-05)
DX: J18.9 Pneumonia, unspecified organism (principal)
CPT/HCPCS: 36415; 71046-TC-FY; 80053; 84484; 85025; 85379; 87070; 87880; 93005; 93010; 99284-25; J0131; J7030

== ENCOUNTER 2019-04-13 10:51 | Emergency (ER) | payer SELFPAY ==
[2019-04-13 10:58] VITALS: BP 135/85; PULSE 63; TEMP 97.5; BMI 28.2
[2019-04-13] MEDS ORDERED: KETOROLAC TROMETHAMINE 60 MG/2 ML VIAL IM ONE (11:28)
[2019-04-13] MEDS ORDERED: KETOROLAC TROMETHAMINE 60 MG/2 ML VIAL ONE (11:30)
--- NOTE | 2019-04-13 12:17 | PDOC ---
History of Present Illness - General Chief Complaint: Lightheaded Stated Complaint: HEADACHE Time Seen by Provider: 04/13/19 11:07 History Source: Patient Exam Limitations: No Limitations - History of Present Illness Initial Comments: 04/13/19 11:23 33-year-old male with history of migraines for the past year presents ED with continual headaches intermittently worsened in the morning hours associated with intermittent dizziness. Patient was seen here about a year ago after developing headaches and has since followed up with a neurologist in [place] who stated patient with likely migraines and to take Motrin or Tylenol for discomfort. Patient states has been taking Motrin and Tylenol but symptoms recur by the next day. Patient denies any visual changes, nausea, weakness, neck pain, or fever. Patient does not have medical insurance at the emergency room and was unable to follow-up with a neurologist and so decided to come to the ER for further evaluation. Is this a multiple visit Asthma Patient?: No Timing/Duration: other (1 year ) Severity: moderate Associated Symptoms: reports: headaches, other (intermittent dizziness) Past History - Travel Traveled outside of the country in the last 30 days: No Close contact w/someone who was outside of country & ill: No - Past Medical History Allergies/Adverse Reactions: Allergies Allergy/AdvReac Type Severity Reaction Status Date / Time No Known Allergies Allergy Verified 04/13/19 10:58 Home Medications: Ambulatory Orders levoFLOXacin [Levaquin] 750 mg PO DAILY #4 tab 12/06/18 Acetaminophen/Caffeine/Butalb [Fioricet -] 1 tab PO TID PRN #21 tablet MDD 3 COPD: No DVT: No - Immunization History Immunization Up to Date: No - Psycho Social/Smoking Cessation Hx Smoking History: Never smoked Have you smoked in the past 12 months: No Information on smoking cessation initiated: No Hx Alcohol Use: No Drug/Substance Use Hx: No Substance Use Type: None Patient Lives Alone: No Lives with/in: spouse/SO Review of Systems - Review of Systems Able to Perform ROS?: Yes Constitutional: No: Symptoms Reported HEENTM: No: Symptoms Reported Respiratory: No: Symptoms reported Cardiac (ROS): No: Lightheadedness ABD/GI: No: Symptoms Reported, Nausea Musculoskeletal: No: Symptoms Reported Integumentary: No: Symptoms Reported Neurological: Yes: Headache, Dizziness. No: Numbness, Paresthesia, Tingling, Weakness *Physical Exam - Vital Signs Last Vital Signs Temp Pulse Resp BP Pulse Ox 97.5 F L 63 19 135/85 98 04/13/19 10:56 04/13/19 10:56 04/13/19 10:56 04/13/19 10:56 04/13/19 10:56 - Physical Exam General Appearance: Yes: Nourished, Appropriately Dressed. No: Apparent Distress HEENT: positive: EOMI, GIN, TMs Normal, Pharynx Normal. negative: Pale Conjunctivae Neck: positive: Normal Thyroid, Supple Respiratory/Chest: positive: Lungs Clear, Normal Breath Sounds. negative: Respiratory Distress, Accessory Muscle Use Cardiovascular: positive: Regular Rhythm, Regular Rate Gastrointestinal/Abdominal: positive: Soft. negative: Tenderness Integumentary: positive: Normal Color, Warm, Moist Neurologic: positive: Normal Mood/Affect, Motor Strength 5/5 (Ambulatory) ED Treatment Course - RADIOLOGY Radiology Studies Ordered: Category Date Time Status HEAD CT WITHOUT CONTRAST [CT] Stat CT Scan 04/13/19 11:28 Completed - Medications Given in the ED: ED Medications Discontinued Medications Generic Name Dose Route Start Last Admin Trade Name Freq PRN Reason Stop Dose Admin Ketorolac Tromethamine 60 mg 04/13/19 11:28 04/13/19 11:36 Toradol Injection - IM 04/13/19 11:29 60 mg NOW ONE Administration Medical Decision Making - Medical Decision Making 04/13/19 11:33 Chief complaint: Headache for the past year with associated dizziness intermittently but not consistent worsened in a.m. hours. Patient denies any other associated symptoms. Patient did follow-up with a neurologist but was unable to follow-up for second visit due to lack of insurance. Exam: Patient with normal physical exam with no neurofocal deficits. Plan: Repeat head CT along with Toradol IM since patient is refusing labs/IV 04/13/19 11:[address] negative for acute pathology. Patient states is asymptomatic presently. Patient given referral to Dr. Lomeli, neurologist who may be able to work with patient due to lack of insurance. Patient also prescribed Fioricet for breakthrough pain Discharge - Discharge Information Problems reviewed: Yes Clinical Impression/Diagnosis: Headache Condition: Improved Disposition: HOME - Additional Discharge Information Prescriptions: Acetaminophen/Caffeine/Butalb [Fioricet -] 1 tab PO TID PRN #21 tablet MDD 3 PRN Reason: Headache - Follow up/Referral Referrals: Yan Lomeli MD [Staff Physician] - - Patient Discharge Instructions Patient Printed Discharge Instructions: DI for Hormonal and Tension Headaches Additional Instructions: Please take medication as prescribed. Follow up with referred neurologist Print Language: UKRAINIAN - Post Discharge Activity
== END 2019-04-13 12:40 | disposition home or self-care (01) ==
LOC: JER 10:51
PROC: 3E0233Z Introduction of Anti-inflammatory into Muscle, Percutaneous Approach (ICD-10-PCS; principal; 2019-04-13)
DX: R51 Headache (principal)
CPT/HCPCS: 70450-TC; 99283-25

== ENCOUNTER 2021-09-29 06:46 | Day surgery (SDC) | payer OTHER ==
[2021-09-29 07:10] VITALS: BMI 29.2
[2021-09-29] MEDS ORDERED: morphine CARPU-JECT 4 MG/1 ML DISP.SYRIN IVPUSH ONE (07:46)
[2021-09-29] MEDS ORDERED: ONDANSETRON 4 MG/2 ML VIAL IVPUSH ONE (07:46)
[2021-09-29] MEDS ORDERED: SODIUM CHLORIDE 1,000 ML IV SCH ×2 (08:00→17:03)
[2021-09-29] MEDS ORDERED: ONDANSETRON 4 MG/2 ML VIAL ONE (08:24)
[2021-09-29 11:20] LABS: BASO % 0.9 % (0-2.0); HEMATOCRIT 44.1 % (35.4-49); HEMOGLOBIN 15.3 GM/dL (11.7-16.9); LYMPH % 37.1 % (8-40); MCH 29.3 pg (25.7-33.7); MCHC 34.8 g/dl (32.0-35.9); MEAN CELL VOLUME 84.2 fl (80-96); MEAN PLT VOLUME 9.3 fl (7.5-11.1); MONO % 6.9 % (3.8-10.2); NEUT % 48.1 % (42.8-82.8); PLATELET COUNT 264 10^3/uL (134-434); RBC 5.23 M/mm3 (4.00-5.60); RDW 13.3 % (11.9-15.9); WHITE BLOOD COUNT 7.7 K/mm3 (4.0-10.0)
[2021-09-29 11:27] LABS: INR 0.98 (0.83-1.09); PROTHROMBIN TIME (PATIENT) 11.3 SEC (9.7-13.0)
[2021-09-29 11:39] LABS: ALBUMIN 4.4 g/dl (3.4-5.0); BLOOD UREA NITROGEN 8.8 mg/dL (7-18); CALCIUM 9.8 mg/dL (8.5-10.1)
[2021-09-29 11:42] LABS: CREATININE 0.8 mg/dL (0.55-1.3)
[2021-09-29 11:44] LABS: BILIRUBIN,TOTAL 0.4 mg/dL (0.2-1); TOT PROT 8.5 g/dl (6.4-8.2)
[2021-09-29] MEDS ORDERED: ACETAMINOPHEN 1000 MG/100 ML BAG IVPB PRN ×2 (12:53→17:03)
[2021-09-29] MEDS ORDERED: morphine CARPU-JECT 4 MG/1 ML DISP.SYRIN IVPUSH PRN (12:54)
[2021-09-29 13:17] LABS: PH,URINE 6.5 (5.0-8.0); URINE APPEARANCE CLEAR; URINE BILIRUBIN NEGATIVE (NEGATIVE); URINE COLOR YELLOW; URINE GLUCOSE (UA) NEGATIVE (NEGATIVE); URINE KETONE NEGATIVE (NEGATIVE); URINE LEUK ESTERASE NEGATIVE (NEGATIVE); URINE NITRITE NEGATIVE (NEGATIVE); URINE PROTEIN NEGATIVE (NEGATIVE); URINE UROBILINOGEN 0.2 mg/dL (0.2-1.0)
[2021-09-29] MEDS ORDERED: LIDOCAINE HCL 1%, 10 MG/ML (20ML VIAL) ONE (14:53)
[2021-09-29] MEDS ORDERED: FENTANYL CITRATE/PF 50 MCG/ML VIAL ONE ×7 (14:57→18:11)
[2021-09-29] MEDS ORDERED: LIDOCAINE HCL 2% 100 MG/5 ML DISP.SYRIN ONE (14:57)
[2021-09-29] MEDS ORDERED: DEXAMETHASONE SOD PHOSPHATE 4 MG/1 ML VIAL ONE (14:57)
[2021-09-29] MEDS ORDERED: KETOROLAC TROMETHAMINE 30 MG/1 ML VIAL ONE (14:57)
[2021-09-29] MEDS ORDERED: PROPOFOL 20 ML ONE (14:58)
[2021-09-29] MEDS ORDERED: MIDAZOLAM HCL 2 MG/2 ML SINGLE DOSE VIAL ONE (14:58)
[2021-09-29] MEDS ORDERED: LIDOCAINE HCL 1%, 10 MG/ML (20ML VIAL) NR ONE (14:58)
[2021-09-29] MEDS ORDERED: ceFAZolin SODIUM 1 GM VIAL ONE (15:53)
[2021-09-29] MEDS ORDERED: ceFAZolin SODIUM 1 GM VIAL IVPB ONE (15:55)
[2021-09-29] MEDS ORDERED: BUPIVACAINE HCL/PF 0.5% (5MG/ML) 10 ML VIAL ONE (15:59)
[2021-09-29] MEDS ORDERED: BUPIVACAINE HCL/PF 0.5% (5MG/ML) 10 ML VIAL IJ ONE (16:00)
[2021-09-29] MEDS ORDERED: POVIDONE-IODINE OINTMENT 10% - 28.4 GM TUBE ONE (16:34)
[2021-09-29] MEDS ORDERED: DEXTROSE 5%-0.45% SALINE 1,000 ML IV SCH (16:45)
[2021-09-29] MEDS ORDERED: oxyCODONE HCL 5 MG TABLET PO PRN ×3 (16:53→17:03)
[2021-09-29] MEDS ORDERED: ONDANSETRON 4 MG/2 ML VIAL IVPUSH PRN (16:53)
[2021-09-29] MEDS ORDERED: ACETAMINOPHEN 325 MG TABLET (FP) PO PRN (16:53)
[2021-09-29] MEDS ORDERED: PROMETHAZINE HCL 25 MG/1 ML VIAL IVPUSH PRN (16:53)
[2021-09-29] MEDS ORDERED: morphine SULFATE 4 MG/ML VIAL IVPUSH PRN (17:03)
[2021-09-29] MEDS ORDERED: CEFAZOLIN 1 GM in DEXTROSE 5%-WATER - 1 GM/50 ML IVPB IVPB ONE (18:15)
[2021-09-29] MEDS ORDERED: ACETAMINOPHEN INJECTION 100 ML IVPB ONE (18:28)
[2021-09-30 05:25] VITALS: BP 118/69; PULSE 87; TEMP 98.8
== END 2021-09-30 11:45 | disposition home or self-care (01) ==
LOC: JER 06:46 → JERBED 12:15 → JASUSAT 12:15 → UNDOADMOB 12:15 → SUATTDRO 12:15 → J6S 18:49 → JASUSAT 09-30 11:45
PROVIDERS: ATTEND Nurse Practitioner Acute Care
PROC: 0VTJ0ZZ Resection of Right Epididymis, Open Approach (ICD-10-PCS; 2021-09-29)
PROC: 0VBF0ZZ Excision of Right Spermatic Cord, Open Approach (ICD-10-PCS; 2021-09-29)
PROC: 0VT90ZZ Resection of Right Testis, Open Approach (ICD-10-PCS; principal; 2021-09-29 16:00)
DX: D49.59 Neoplasm of unspecified behavior of other genitourinary organ (principal)
CPT/HCPCS: 36415; 76870-TC; 80053; 81003; 85025; 85610; 86900; 87086; 88309-TC; 93005; 93010; 94760; 99285-25; C9803-CS; U0003; U0005

== ENCOUNTER 2022-07-07 08:50 | Emergency (ER) | payer OTHER ==
[2022-07-07 09:03] VITALS: BP 160/90; PULSE 82; RESP 18; TEMP 98.1; BMI 29.0
[2022-07-07] MEDS ORDERED: IBUPROFEN 400 MG TABLET (FP) PO ONE ×2 (10:09→10:14)
[2022-07-07] MEDS ORDERED: CYCLOBENZAPRINE HCL 10 MG TABLET (FP) PO ONE (10:09)
[2022-07-07] MEDS ORDERED: CYCLOBENZAPRINE HCL 10 MG TABLET (FP) ONE (10:13)
== END 2022-07-07 11:45 | disposition home or self-care (01) ==
LOC: JERFT 08:50
DX: S39.012A Strain of muscle, fascia and tendon of lower back, initial encounter (principal); V49.50XA Passenger injured in collision with unspecified motor vehicles in traffic accident, initial encounter
CPT/HCPCS: 99283-25

== ENCOUNTER 2022-10-14 02:43 | Emergency (ER) | payer OTHER ==
[2022-10-14] MEDS ORDERED: KETOROLAC TROMETHAMINE 15 MG/ML VIAL IM ONE (02:56)
[2022-10-14] MEDS ORDERED: DEXAMETHASONE SOD PHOSPHATE 10 MG/1 ML VIAL IM ONE (02:57)
[2022-10-14] MEDS ORDERED: DEXAMETHASONE SOD PHOSPHATE 10 MG/1 ML VIAL ONE (02:57)
[2022-10-14] MEDS ORDERED: KETOROLAC TROMETHAMINE 30 MG/1 ML VIAL ONE (02:57)
[2022-10-14 03:04] VITALS: BP 116/84; PULSE 82; RESP 16; TEMP 98.2; BMI 28.2
== END 2022-10-14 04:25 | disposition home or self-care (01) ==
LOC: JER 02:43
PROC: 3E0333Z Introduction of Anti-inflammatory into Peripheral Vein, Percutaneous Approach (ICD-10-PCS; principal; 2022-10-14)
PROC: 3E033GC Introduction of Other Therapeutic Substance into Peripheral Vein, Percutaneous Approach (ICD-10-PCS; 2022-10-14)
DX: M25.562 Pain in left knee (principal)
CPT/HCPCS: 73560-TC-LT-FY; 99284-25; J1100

== ENCOUNTER 2023-09-16 18:49 | Emergency (ER) | payer OTHER ==
[2023-09-16 18:54] VITALS: BP 147/100; PULSE 94; RESP 20; TEMP 98.2; BMI 29.0
[2023-09-16] MEDS ORDERED: KETOROLAC TROMETHAMINE 30 MG/1 ML VIAL ONE (20:32)
[2023-09-16] MEDS: KETOROLAC TROMETHAMINE 30 MG/1 ML VIAL IM ONE (20:35)
== END 2023-09-16 21:01 | disposition home or self-care (01) ==
LOC: JERFT 18:49
PROC: 3E0133Z Introduction of Anti-inflammatory into Subcutaneous Tissue, Percutaneous Approach (ICD-10-PCS; principal; 2023-09-16)
DX: M25.562 Pain in left knee (principal); X50.0XXA Overexertion from strenuous movement or load, initial encounter
CPT/HCPCS: 73562-TC-LT-FY; 99284-25

== ENCOUNTER 2024-05-14 20:57 | Emergency (ER) | payer OTHER ==
[2024-05-14 21:07] VITALS: BP 146/90; PULSE 81; RESP 18; TEMP 97.7; BMI 31.8
[2024-05-14] MEDS ORDERED: KETOROLAC TROMETHAMINE 30 MG/1 ML VIAL ONE (22:03)
[2024-05-14] MEDS: KETOROLAC TROMETHAMINE 30 MG/1 ML VIAL IM ONE (22:10)
== END 2024-05-14 23:21 | disposition home or self-care (01) ==
LOC: JER 20:57
PROC: 3E0233Z Introduction of Anti-inflammatory into Muscle, Percutaneous Approach (ICD-10-PCS; principal; 2024-05-14)
DX: M79.672 Pain in left foot (principal)
CPT/HCPCS: 73630-TC-LT; 99284-25